=== PATIENT | female | born 1995 | race Caucasian/White ===

== ENCOUNTER 2016-12-25 19:30 | Inpatient (IN) | payer OTHER ==
[~2016-12-25] VITALS: Ht 154.9 cm; Wt 71.2 kg
[~2016-12-25 19:30] MED LIST: COLACE100 MG PO
[2016-12-25 20:09] LABS: HEMOGLOBIN 9.9 gm/dl (12.3-15.3); RED BLOOD COUNT 3.72 M/UL (4.00-5.10); WHITE BLOOD COUNT 17.3 K/UL (4.5-11.0)
[2016-12-27 03:59] LABS: HEMOGLOBIN 6.5 gm/dl (12.3-15.3)
[2016-12-27 08:57] LABS: HEMOGLOBIN 6.9 gm/dl (12.3-15.3)
== END 2016-12-28 16:45 | disposition home or self-care (01) | DRG 774 ==
LOC: GENOP 19:30 → OB 20:50 → GENOP 20:50 → OB 20:50
PROVIDERS: Obstetrics & Gynecology; ADMIT Obstetrics & Gynecology
PROC: 3E0234Z Introduction of Serum, Toxoid and Vaccine into Muscle, Percutaneous Approach (ICD-10-PCS; principal; 2016-12-27)
PROC: 10E0XZZ Delivery of Products of Conception, External Approach (ICD-10-PCS; 2016-12-27)
PROC: 0HQ9XZZ Repair Perineum Skin, External Approach (ICD-10-PCS; 2016-12-27)
DX: O14.94 Unspecified pre-eclampsia, complicating childbirth (principal); O98.52 Other viral diseases complicating childbirth; O71.82 Other specified trauma to perineum and vulva; O99.334 Smoking (tobacco) complicating childbirth; F17.210 Nicotine dependence, cigarettes, uncomplicated; A60.00 Herpesviral infection of urogenital system, unspecified; O75.89 Other specified complications of labor and delivery; R22.40 Localized swelling, mass and lump, unspecified lower limb; O99.02 Anemia complicating childbirth; Z3A.39 39 weeks gestation of pregnancy; Z37.0 Single live birth; Z83.3 Family history of diabetes mellitus; Z82.49 Family history of ischemic heart disease and other diseases of the circulatory system; Z23 Encounter for immunization
CPT/HCPCS: 36415; 51702; 81001; 82800; 85014; 85018; 85025; 90715; J2210; J2405; J2590; J2795; J3010; J7120